=== PATIENT | male | born 1995 | race American Indian/Alaskan Native ===

== ENCOUNTER 2017-03-07 17:04 | Emergency (ER) | payer MEDICAID ==
[2017-03-07 17:29] VITALS: BP 120/85
[2017-03-07] MEDS ORDERED: XYLOCAINE 1% MPF 5 mL INFILTRATI ONE (18:41)
[2017-03-07] MEDS ORDERED: ROCEPHIN IM ONE (18:41)
[2017-03-07] MEDS ORDERED: DUONEB *Not for PRN Use IH ONE (18:42)
--- NOTE | 2017-03-07 18:59 | Emergency Department Report ---
Minor Respiratory - HPI Chief Complaint: Upper Respiratory Infection Stated Complaint: HEAD COLD, RUNNY NOSE Time Seen by Provider: 03/07/17 18:38 Duration: 3 Days Pain Location: Throat Severity: moderate Minor Respiratory: Yes Sore Throat, Yes Able to Tolerate Fluids, Yes Cough, Yes Sick Contacts, No Rhinorrhea, No Ear Pain, No Hemoptysis, No Chest Pain, No Shortness of Breath, No Fever ED Review of Systems ROS: Stated complaint: HEAD COLD, RUNNY NOSE Other details as noted in HPI Comment: Unobtainable due to pts medical conditions Constitutional: no symptoms reported, see HPI. denies: chills, fever Eyes: as per HPI. denies: eye pain, eye discharge, vision change ENT: as per HPI, throat pain, congestion (SINUS). denies: ear pain, dental pain , hearing loss, epistaxis Respiratory: no symptoms reported, see HPI, cough. denies: orthopnea, shortness of breath, SOB with exertion, SOB at rest, stridor Cardiovascular: as per HPI. denies: chest pain, palpitations, dyspnea on exertion, orthopnea Endocrine: no symptoms reported, see HPI. denies: excessive sweating, flushing , intolerance to cold, intolerance to heat Gastrointestinal: as per HPI. denies: abdominal pain, nausea, vomiting Genitourinary: as per HPI. denies: urgency, dysuria Musculoskeletal: as per HPI. denies: back pain Skin: as per HPI. denies: rash, lesions Neurological: as per HPI. denies: headache, weakness Psychiatric: as per HPI. denies: anxiety, depression Hematological/Lymphatic: as per HPI. denies: easy bleeding ED Past Medical Hx - Past Medical History Previous Medical History?: No - Surgical History Past Surgical History?: No - Social History Smoking Status: Never Smoker Substance Use Type: None - Medications Home Medications: Home Medications Medication Instructions Recorded Confirmed Last Taken Type Ciprofloxacin HCl [Ciprofloxacin 500 mg PO Q12H #20 tab 06/24/15 Unknown Rx TAB] Doxycycline [Vibramycin CAP] 100 mg PO Q12HR #20 capsule 06/24/15 Unknown Rx Amoxicillin [Trimox CAP] 500 mg PO BID #20 capsule 03/07/17 Unknown Rx Minor Respiratory Exam - Exam General: Vital signs noted. No distress. Alert and acting appropriately. HEENT: Yes Pharyngeal Erythema, Yes Moist Mucous Membranes, Yes Frontal Tenderness, Yes Maxillary Tenderness, No Pharyngeal Exudates, No Rhinorrhea, No Conjuctival Injection Ear: Neither TM Bulge, Neither TM Erythema, Neither EAC Pain, Neither EAC Discharge Neck: Yes Supple, No Adenopathy Lungs: Yes Good Air Exchange, Yes Wheezes, Yes Cough, No Ronchi, No Stridor, No Labored Respirations, No Retractions, No Use of Accessory Muscles, No Other Abnormal Lung Sounds Heart: Yes Regular, No Murmur Abdomen: Yes Normal Bowel Sounds, No Tenderness, No Peritoneal Signs Skin: No Rash, No Edema Neurologic: Alert and oriented, no deficits. Musculoskeletal: Unremarkable. ED Course Vital Signs 03/07/17 17:27 Temperature 99 F Pulse Rate 80 Respiratory 16 Rate Blood Pressure 120/85 O2 Sat by Pulse 98 Oximetry - Reevaluation(s) Reevaluation #1: 03/07/17 18:57 RECENT URTI NON TOXIC SORE THROAT MILD WHEEZING AND TIGHT COUGH B MAX AND MAN SINUS TENDERNESS NO FEVER MEDICATED AND DC HOME ED Medical Decision Making - Medical Decision Making SIMPLE URTI Critical care attestation.: If time is entered above; I have spent that time in minutes in the direct care of this critically ill patient, excluding procedure time. ED Disposition Clinical Impression: Upper respiratory infection, Pharyngitis Disposition: DC-01 TO HOME OR SELFCARE Is pt being admited?: No Does the pt Need Aspirin: No Condition: Stable Instructions: Upper Respiratory Infection (ED), Pharyngitis (ED) Additional Instructions: REST FLUIDS MED ORDERED TODAY Referrals: PRIMARY CAREMD [Primary Care Provider] - 3-5 Days NOEL ACEVEDO MD [Staff Physician] - 3-5 Days Time of Disposition: 18:59
== END 2017-03-07 20:13 | disposition home or self-care (01) ==
LOC: ED 17:04
DX: J06.9 Acute upper respiratory infection, unspecified (principal); J02.9 Acute pharyngitis, unspecified
CPT/HCPCS: 94640; 96372; 99282; J0696

== ENCOUNTER 2017-06-13 01:00 | Emergency (ER) | payer MEDICAID ==
[2017-06-13 03:15] LABS: Eosinophils % (Auto) 0.4 % (0.0-4.3); Hematocrit 44.8 % (35.5-45.6); Hemoglobin 15.4 gm/dl (11.8-15.2); Mean Corpuscular HGB Conc 34 % (32-34); Mean Corpuscular Hemoglobin 30 pg (28-32); Mean Corpuscular Volume 86 fl (84-94); Platelet Count 169 K/mm3 (140-440); Red Blood Count 5.24 M/mm3 (3.65-5.03); Red Cell Distribution Width 13.5 % (13.2-15.2); White Blood Count 6.1 K/mm3 (4.5-11.0)
[2017-06-13 03:21] LABS: Anion Gap 19 mmol/L; BUN/Creatinine Ratio 12; Blood Urea Nitrogen 14 mg/dL (9-20); Calcium 9.5 mg/dL (8.4-10.2); Carbon Dioxide 26 mmol/L (22-30); Chloride 98.6 mmol/L (98-107); Glucose 92 mg/dL (75-100); Potassium 3.8 mmol/L (3.6-5.0); Sodium 140 mmol/L (137-145)
[2017-06-13 06:52] LABS: Urine Drugs of Abuse Note Disclamer
[2017-06-13] MEDS ORDERED: GEODON IM ONE (06:53)
--- NOTE | 2017-06-13 06:58 | Emergency Department Report ---
ED Psych HPI - General Chief Complaint: Psych Stated Complaint: MH Time Seen by Provider: 06/13/17 06:42 Source: patient Mode of arrival: Ambulatory - History of Present Illness Initial Comments: Patient is 21 years old male brought by his mother after patient is started acting strangely. She stated that last night he walk outside with socks and she have to call PD. Patient stated that he is seeing angles and Sharmaine are telling him just watch TV and relax and they did not tell him to kill himself Or someone else. He told me last time he saw three Sharmaine at his door. Patient has positive auditory and visual hallucination. Positive dilution. Mother stated that his father had the same symptoms when he was at his age. MD Complaint: altered mental status Associated Psychiatric Symptoms: racing thoughts, auditory hallucinations, visual hallucinations, delusions History of same: No Quality: constant Associated Symptoms: denies other symptoms - Related Data Previous Rx's Medication Instructions Recorded Last Taken Type Ciprofloxacin HCl [Ciprofloxacin 500 mg PO Q12H #20 tab 06/24/15 Unknown Rx TAB] Doxycycline [Vibramycin CAP] 100 mg PO Q12HR #20 capsule 06/24/15 Unknown Rx Amoxicillin [Trimox CAP] 500 mg PO BID #20 capsule 03/07/17 Unknown Rx Allergies Allergy/AdvReac Type Severity Reaction Status Date / Time No Known Allergies Allergy Verified 03/07/17 17:27 ED Review of Systems ROS: Stated complaint: MH Other details as noted in HPI Comment: All other systems reviewed and negative Constitutional: denies: chills, fever Respiratory: denies: cough, orthopnea, shortness of breath, SOB with exertion Cardiovascular: denies: chest pain, palpitations Gastrointestinal: denies: abdominal pain, nausea, vomiting, diarrhea, constipation Genitourinary: denies: urgency, dysuria, frequency, hematuria Neurological: denies: headache, weakness, numbness, paresthesias ED Past Medical Hx - Past Medical History Previous Medical History?: No - Social History Smoking Status: Never Smoker - Medications Home Medications: Home Medications Medication Instructions Recorded Confirmed Last Taken Type Ciprofloxacin HCl [Ciprofloxacin 500 mg PO Q12H #20 tab 06/24/15 Unknown Rx TAB] Doxycycline [Vibramycin CAP] 100 mg PO Q12HR #20 capsule 06/24/15 Unknown Rx Amoxicillin [Trimox CAP] 500 mg PO BID #20 capsule 09/10/17 Unknown Rx ED Physical Exam - General Limitations: No Limitations General appearance: alert, in no apparent distress, anxious - Head Head exam: Present: atraumatic, normocephalic, normal inspection - Eye Eye exam: Present: normal appearance, PERRL - ENT ENT exam: Present: normal exam, normal orophraynx, mucous membranes moist - Neck Neck exam: Present: normal inspection, full ROM. Absent: tenderness, meningismus, lymphadenopathy, thyromegaly - Respiratory Respiratory exam: Present: normal lung sounds bilaterally. Absent: respiratory distress, wheezes, rales, rhonchi, stridor, chest wall tenderness, accessory muscle use, decreased breath sounds, prolonged expiratory - Cardiovascular Cardiovascular Exam: Present: regular rate, normal rhythm, normal heart sounds - GI/Abdominal GI/Abdominal exam: Present: soft, normal bowel sounds. Absent: distended, tenderness, guarding, rebound, rigid, diminished bowel sounds, organomegaly, mass, bruit, pulsatile mass, hernia - Extremities Exam Extremities exam: Present: normal inspection, full ROM, normal capillary refill - Back Exam Back exam: Present: normal inspection. Absent: CVA tenderness (R), CVA tenderness (L) - Neurological Exam Neurological exam: Present: alert, oriented X3, CN II-XII intact, normal gait - Skin Skin exam: Present: warm, intact, normal color. Absent: rash, cyanosis, diaphoretic, erythema, urticaria ED Course Vital Signs 06/13/17 06/13/17 06/13/17 02:34 06:41 08:19 Temperature 98.6 F 98.1 F Pulse Rate 98 H 105 H Respiratory 20 18 18 Rate Blood Pressure 158/98 Blood Pressure 150/82 [Left] O2 Sat by Pulse 100 98 98 Oximetry ED Medical Decision Making - Lab Data Result diagrams: 06/13/17 02:53 06/13/17 02:53 Critical care attestation.: If time is entered above; I have spent that time in minutes in the direct care of this critically ill patient, excluding procedure time. ED Disposition Clinical Impression: Acute psychosis Disposition: DC/TX-65 PSY HOSP/PSY UNIT Is pt being admited?: No Condition: Stable Referrals: BARBARA ZUNIGA MD [Primary Care Provider] - 3-5 Days
[2017-06-13 07:12] LABS: Bacteria,Urine 1+ /HPF (Negative); Bilirubin,Urine NEG (Negative); Blood,Urine NEG (Negative); Ketones,Urine 20 mg/dL (Negative); Leukocyte Esterase,Urine NEG (Negative); Mucus,Urine FEW /HPF; Nitrite,Urine NEG (Negative); Protein,Urine <15 mg/dL mg/dL (Negative); Urobilinogen,Urine < 2.0 mg/dL (<2.0)
[2017-06-13] MEDS ORDERED: BENADRYL PO ONE (15:05)
[2017-06-13] MEDS ORDERED: ATIVAN PO ONE (15:05)
--- NOTE | 2017-06-13 16:11 | Consultation ---
History of Present Illness - Reason for Consult Reason for consult: psych consult - Chief Complaint Chief complaint: cc: "mom has a spirit inside her" 21 year old BM presents to [facility]. We've been asked to see him for a mental health evaluation. Patient notes that his mom has been deluded recently and she decided to bring him into the hospital. He feels that he isn' t psychotic or depressed. He denies any SI/HI/AH/VH. He denies any paranoia. When asked about further issues, patient become increasingly disorganized. He began saying that he's yves's pee is on the floor. "I'm supposed to be on the floor." Patient as also preoccupied with the Sabianism yazidism- referring to it multiple times during our conversation." Medications and Allergies Allergies Allergy/AdvReac Type Severity Reaction Status Date / Time No Known Allergies Allergy Verified 03/07/17 17:27 Home Medications Medication Instructions Recorded Confirmed Last Taken Type Ciprofloxacin HCl [Ciprofloxacin 500 mg PO Q12H #20 tab 06/24/15 Unknown Rx TAB] Doxycycline [Vibramycin CAP] 100 mg PO Q12HR #20 capsule 06/24/15 Unknown Rx Amoxicillin [Trimox CAP] 500 mg PO BID #20 capsule 03/07/17 Unknown Rx Past psychiatric history - past Psychiatric treatment and history psychiatric treatment history: Inpt: none per patient outpt: none per patient substance abuse: none per patient No suicide attempt history No family psych history - Social History Social history: other (Lives iwdionte borther- whomhe mentions as part of his support system. not dating, no children, not working, school: 12 grade, wants to work in the [employer]) Mental Status Exam - Vital signs Last Vital Signs Temp 98.1 F 06/13/17 08:19 Pulse 105 H 06/13/17 08:19 Resp 18 06/13/17 08:19 BP 150/82 06/13/17 08:19 Pulse Ox 98 06/13/17 08:19 - Exam Orientation: time, place, person Affect: normal Mood: appropriate Thought content: delusions, paranoia Thought Process: Circumstantial, Tangential, Disorganized Perceptions: hallucinations Speech: normal rate and pattern Concentration: distractible Motor activity: normal Level of consciousness: alert Memory: Intact Sleep Symptoms: None Interaction: cooperative Mini mental status exam(if necessary): 24-30 Results Result Diagrams: 06/13/17 02:53 06/13/17 02:53 Abnormal lab results 06/13/17 Range/Units 02:53 RBC 5.24 H (3.65-5.03) M/mm3 Hgb 15.4 H (11.8-15.2) gm/dl Lymph % (Auto) 38.0 H (13.4-35.0) % [place] % (Auto) 13.1 H (0.0-7.3) % All other labs normal. Assessment and Plan Assessment and plan: 21 year old BM presents to [facility]. We've been asked to see him for a mental health evaluation. Patient presents with disorganized behavior with delusional thoughts towards family A/P 1. SCPT- need further collateral to determine duration and extent of his psychosis- will use small dose of risperdal at this time until further collateral to address current symptoms with cogentin for eps.- side effects, risks, and benefits discussed. Rec placement at this time.
[2017-06-13] MEDS ORDERED: RisperDAL PO SCH (21:00)
[2017-06-13] MEDS ORDERED: COGENTIN PO SCH (21:00)
[2017-06-13 21:50] VITALS: BP 139/95
== END 2017-06-14 06:01 ==
LOC: ED 01:00 → EEVIPCON 01:00 → ED 06-14 06:01
DX: F23 Brief psychotic disorder (principal)
CPT/HCPCS: 36415; 80048; 80307; 81001; 85025; 96372; 99285; G0480; J3486; 80320

== ENCOUNTER 2019-08-31 18:32 | Emergency (ER) | payer MEDICAID, MEDICARE ==
--- NOTE | 2019-08-31 18:45 | Emergency Department Report ---
Blank Doc - Documentation Documentation: 24-year-old male that presents with n/v. This initial assessment/diagnostic orders/clinical plan/treatment(s) is/are subject to change based on patient's health status, clinical progression and re- assessment by fellow clinical providers in the ED. Further treatment and workup at subsequent clinical providers discretion. Patient/guardians urged not to elope from the ED as their condition may be serious if not clinically assessed and managed. Initial orders include: 1- Patient sent to [facility] for further evaluation and treatment 2- labs
[2019-08-31 19:39] LABS: Basophils % (Auto) 0.6 % (0.0-1.8); Eosinophils # (Auto) 0.1 K/mm3 (0.0-0.4); Hematocrit 44.7 % (35.5-45.6); Hemoglobin 15.1 gm/dl (11.8-15.2); Lymphocytes # (Auto) 2.2 K/mm3 (1.2-5.4); Lymphocytes % (Auto) 39.2 % (13.4-35.0); Mean Corpuscular HGB Conc 34 % (32-34); Mean Corpuscular Volume 85 fl (84-94); Monocytes # (Auto) 0.6 K/mm3 (0.0-0.8); Monocytes % (Auto) 11.1 % (0.0-7.3); Platelet Count 195 K/mm3 (140-440); Red Blood Count 5.28 M/mm3 (3.65-5.03); Red Cell Distribution Width 13.5 % (13.2-15.2)
[2019-08-31 20:00] LABS: BUN/Creatinine Ratio 12; Blood Urea Nitrogen 15 mg/dL (9-20); Hemolysis Index 12
[2019-08-31 20:02] LABS: Alanine Aminotransferase 33 units/L (7-56); Albumin 4.9 g/dL (3.9-5); BUN/Creatinine Ratio 13; Blood Urea Nitrogen 15 mg/dL (9-20); Calcium 9.9 mg/dL (8.4-10.2); Hemolysis Index 8
--- NOTE | 2019-08-31 21:35 | Emergency Department Report ---
<ANDRE GOLDMAN - Last Filed: 08/31/19 21:30> ED Psych HPI - General Chief Complaint: Nausea/Vomiting/Diarrhea Stated Complaint: VOMITTING, MENTAL HEALTH ISSUE Time Seen by Provider: 08/31/19 18:44 Source: patient Mode of arrival: Ambulatory - History of Present Illness Initial Comments: Mr. Mai is a 24 yo male with hx of paranoid schizophrenia diagnosed in 2017 who presents with nausea vomiting and mental health concerns. He asked his mother to take him to the hospital for vomiting. He ate [place] food which made him sick. He denies abdominal pain. Mother is concerned that he is not taking his psychiatric medication. He had been followed at [facility]. He has not taken his medications since May. He insists that his physician stated that he could stop taking his medication. Mother denies that this is the case. She is noticed her son's flat affect and disorganized thought pattern. He has been hyperreligious. He has walked from [facility] to [place] in rain and heavy traffic in order to travel to a [place] to [place]. Mother feels that the walking and distance is quite excessive. The trek also puts him at physical risk because he appears inattentive. Mother noticed that his disposition is completely different. MD Complaint: other (hyperreligious, disorganized, flat) -: Gradual, week(s) (several weeks) Associated Psychiatric Symptoms: other (insomnia, disorganized, hyperreligious) Quality: constant Improves With: none Worsens With: none Treatments Prior to Arrival: none - Related Data Home Medications Medication Instructions Recorded Confirmed Last Taken OLANzapine [Zyprexa] 1 tab PO HS 08/31/19 08/31/19 Unknown Previous Rx's Medication Instructions Recorded Last Taken Type OLANzapine [ZyPREXA] 10 mg PO DAILY #30 tablet 09/01/19 Unknown Rx Allergies Allergy/AdvReac Type Severity Reaction Status Date / Time No Known Allergies Allergy Verified 08/31/19 18:33 ED Review of Systems Comment: All other systems reviewed and negative Constitutional: denies: fever, malaise Respiratory: denies: shortness of breath Cardiovascular: denies: chest pain Gastrointestinal: nausea, vomiting ED Past Medical Hx - Past Medical History Previous Medical History?: Yes Hx Psychiatric Treatment: Yes (paranoid schizophrenia) - Surgical History Past Surgical History?: No - Social History Smoking Status: Former Smoker Substance Use Type: None - Medications Home Medications: Home Medications Medication Instructions Recorded Confirmed Last Taken Type OLANzapine [Zyprexa] 1 tab PO HS 08/31/19 08/31/19 Unknown History OLANzapine [ZyPREXA] 10 mg PO DAILY #30 tablet 09/01/19 Unknown Rx ED Physical Exam - General Limitations: No Limitations General appearance: alert, in no apparent distress - Head Head exam: Present: atraumatic, normocephalic - Eye Eye exam: Present: normal appearance - ENT ENT exam: Present: mucous membranes moist - Neck Neck exam: Present: normal inspection, full ROM - Respiratory Respiratory exam: Present: normal lung sounds bilaterally. Absent: respiratory distress, wheezes, rales, rhonchi - Cardiovascular Cardiovascular Exam: Present: regular rate, normal rhythm, normal heart sounds. Absent: systolic murmur, diastolic murmur, rubs, gallop - GI/Abdominal GI/Abdominal exam: Present: soft, normal bowel sounds. Absent: distended, tenderness, guarding, rebound - Rectal Rectal exam: Present: deferred - Extremities Exam Extremities exam: Present: normal inspection - Back Exam Back exam: Present: normal inspection - Neurological Exam Neurological exam: Present: alert, oriented X3 - Psychiatric Psychiatric exam: Present: normal affect, depressed, flat affect, other (poor insight, disorganized, appears to respond to internal stimuli) - Skin Skin exam: Present: warm, dry, intact, normal color. Absent: rash ED Medical Decision Making - Lab Data Result diagrams: 08/31/19 19:26 08/31/19 19:26 Laboratory Results - last 24 hr 08/31/19 08/31/19 08/31/19 19:26 19:26 19:26 WBC 5.6 RBC 5.28 H Hgb 15.1 Hct 44.7 MCV 85 MCH 29 MCHC 34 RDW 13.5 Plt Count 195 Lymph % (Auto) 39.2 H Arthur % (Auto) 11.1 H Eos % (Auto) 1.0 Baso % (Auto) 0.6 Lymph # 2.2 Arthur # 0.6 Eos # 0.1 Baso # 0.0 Seg Neutrophils % 48.1 Seg Neutrophils # 2.7 Sodium 135 L 138 Potassium 4.1 4.3 Chloride 96.3 L 97.8 L Carbon Dioxide 22 23 Anion Gap 21 22 BUN 15 15 Creatinine 1.2 1.3 Estimated GFR > 60 > 60 BUN/Creatinine Ratio 13 12 Glucose 113 H 107 H Calcium 9.9 10.0 Total Bilirubin 0.70 AST 54 H ALT 33 Alkaline Phosphatase 50 Total Protein 8.1 Albumin 4.9 Albumin/Globulin Ratio 1.5 Lipase 23 Salicylates Acetaminophen Plasma/Serum Alcohol 08/31/19 08/31/19 08/31/19 19:26 19:26 19:26 WBC RBC Hgb Hct MCV MCH MCHC RDW Plt Count Lymph % (Auto) Arthur % (Auto) Eos % (Auto) Baso % (Auto) Lymph # Arthur # Eos # Baso # Seg Neutrophils % Seg Neutrophils # Sodium Potassium Chloride Carbon Dioxide Anion Gap BUN Creatinine Estimated GFR BUN/Creatinine Ratio Glucose Calcium Total Bilirubin AST ALT Alkaline Phosphatase Total Protein Albumin Albumin/Globulin Ratio Lipase Salicylates < 0.3 L Acetaminophen < 5.0 L Plasma/Serum Alcohol < 0.01 - Medical Decision Making Mr. Mai has hx of paranoid schizophrenia who presents with symptomatology of acute psychosis. Due to poor insight and potential for personal endangement, 1013 involuntary hold protocol instituted. Mother is very concerned about her son's well-being. Suspect mild food poisoning. Symptoms have improved without treatment. Mr. Mai is medically clear for psychiatric care. Awaiting treatment re commendations by our psychiatric team. CBC chemistry serum tox screen all within normal limits. ED Disposition Clinical Impression: Paranoid schizophrenia Disposition: DC-01 TO HOME OR SELFCARE Condition: Stable Prescriptions: OLANzapine [ZyPREXA] 10 mg PO DAILY #30 tablet Referrals: [facility] [Other] - 3-5 Days <GENARO GOLDMAN - Last Filed: 09/01/19 12:11> ED Review of Systems ROS: Stated complaint: VOMITTING, MENTAL HEALTH ISSUE Other details as noted in HPI ED Course Vital Signs 08/31/19 08/31/19 08/31/19 18:44 21:00 22:35 Temperature 97.8 F 98.1 F Pulse Rate 98 H 95 H Respiratory 20 18 18 Rate Blood Pressure 152/101 Blood Pressure 146/95 [Left] O2 Sat by Pulse 100 99 100 Oximetry 09/01/19 09/01/19 09/01/19 01:10 08:28 08:31 Temperature 99.0 F 98.3 F 98.3 F Pulse Rate 103 H 94 H 63 Respiratory 18 18 20 Rate Blood Pressure Blood Pressure 151/99 147/97 108/66 [Left] O2 Sat by Pulse 99 99 99 Oximetry ED Medical Decision Making - Lab Data Result diagrams: 08/31/19 19:26 08/31/19 19:26 - Medical Decision Making At this time the patient has been cleared by our mental health team and his 1013 is been rescinded. Medications have been refilled will be discharged home Critical care attestation.: If time is entered above; I have spent that time in minutes in the direct care of this critically ill patient, excluding procedure time. ED Disposition Is pt being admited?: No Does the pt Need Aspirin: No Time of Disposition: 12:11
[2019-08-31 21:57] LABS: Bilirubin,Urine NEG (Negative); Blood,Urine NEG (Negative); Color,Urine Yellow (Yellow); Mucus,Urine FEW /HPF; Protein,Urine <15 mg/dL mg/dL (Negative); Urobilinogen,Urine < 2.0 mg/dL (<2.0)
[2019-08-31 22:04] LABS: Amphetamine Screen,Urine PRESUMPTIVE NEGATIVE; Benzodiazepines Screen,Urine PRESUMPTIVE NEGATIVE; Cannabinoid Screen,Urine PRESUMPTIVE NEGATIVE; Cocaine Screen,Urine PRESUMPTIVE NEGATIVE; Methadone Screen,Urine PRESUMPTIVE NEGATIVE; Opiate Screen,Urine PRESUMPTIVE NEGATIVE
[2019-09-01 08:32] VITALS: BP 108/66
--- NOTE | 2019-09-01 11:29 | Consultation ---
History of Present Illness - Reason for Consult Consult date: 09/01/19 Reason for consult: been off meds - History of Present Psychiatric Illness Spoke with environmental property assessor and Dr. Lubin about the patient. The environmental property assessor states the patient has been off his medications (see environmental property assessor's note for more details). Mom is with the patient and willing to take the patient home with her. The patient has an appointment with outpatient psychiatrist on September 19. The environmental property assessor spoke with the office to confirm at [phone]. The patient was also given a safety plan per environmental property assessor. d/c 1013 Zyprexa 10mg po daily Medications and Allergies Allergies Allergy/AdvReac Type Severity Reaction Status Date / Time No Known Allergies Allergy Verified 08/31/19 18:33 Home Medications Medication Instructions Recorded Confirmed Last Taken Type OLANzapine [Zyprexa] 1 tab PO HS 08/31/19 08/31/19 Unknown History OLANzapine [ZyPREXA] 10 mg PO DAILY #30 tablet 09/01/19 Unknown Rx Mental Status Exam - Vital signs Last Vital Signs Temp 98.3 F 09/01/19 08:31 Pulse 63 09/01/19 08:31 Resp 20 09/01/19 08:31 BP 108/66 09/01/19 08:31 Pulse Ox 99 09/01/19 08:31 Results Result Diagrams: 08/31/19 19:26 08/31/19 19:26 Abnormal lab results 08/31/19 08/31/19 08/31/19 Range/Units 19:26 19:26 19:26 RBC 5.28 H (3.65-5.03) M/mm3 Lymph % (Auto) 39.2 H (13.4-35.0) % [place] % (Auto) 11.1 H (0.0-7.3) % Sodium 135 L (137-145) mmol/L Chloride 96.3 L 97.8 L (98-107) mmol/L Glucose 113 H 107 H (75-100) mg/dL AST 54 H (5-40) units/L Salicylates (2.8-20.0) mg/dL Acetaminophen (10.0-30.0) ug/mL 08/31/19 08/31/19 Range/Units 19:26 19:26 RBC (3.65-5.03) M/mm3 Lymph % (Auto) (13.4-35.0) % [place] % (Auto) (0.0-7.3) % Sodium (137-145) mmol/L Chloride (98-107) mmol/L Glucose (75-100) mg/dL AST (5-40) units/L Salicylates < 0.3 L (2.8-20.0) mg/dL Acetaminophen < 5.0 L (10.0-30.0) ug/mL All other labs normal.
== END 2019-09-01 12:21 | disposition home or self-care (01) ==
LOC: ED 18:32
DX: F20.0 Paranoid schizophrenia (principal); Z87.891 Personal history of nicotine dependence
CPT/HCPCS: 36415; 80048; 80053; 80307; 80320; 81001; 83690; 85025; G0480